=== PATIENT | female | born 1960 | race Caucasian/White ===

== ENCOUNTER → 2017-04-30 | Outpatient (CLI) | payer OTHER ==
[~2017-04-30] MED LIST: BARIUM SULFATE 40% (APPLE) 148 GM PWD. PO ONE
--- NOTE | 2017-04-30 12:51 | RAD ---
Video swallow study Indication: Dysphagia Technique: Fluoroscopy guided radio swallow study with total fluoroscopy time of 2.9 minutes. The study was performed by speech pathologist with radiologist present. Comparison: None Findings: Aspiration and penetration was noted with thin and nectar thick liquid , worse with chin tuck position. Significant post swallow residue was noted in the vallecula and piriform sinuses with solid and pureed food items. Impression: As above. Please see detailed notes by speech pathology in patients chart for full information.
== END | disposition home or self-care (01) ==
LOC: RAD 10:26
PROVIDERS: ATTEND Family Medicine
DX: R13.12 Dysphagia, oropharyngeal phase (principal)
CPT/HCPCS: 74230; 92526; 92611

== ENCOUNTER → 2017-08-21 | Outpatient (CLI) | payer OTHER ==
[2017-08-21] MEDS: BARIUM SULFATE 40% (APPLE) 148 GM PWD. PO (13:45)
== END | disposition home or self-care (01) ==
LOC: RAD 12:40
DX: R47.02 Dysphasia (principal)
CPT/HCPCS: 74230; 92526-GN; 92611-GN; G8996-CJ-GN; G8997-CJ-GN; G8998-CJ-GN